=== PATIENT | female | born 1965 | race American Indian/Alaskan Native ===

== ENCOUNTER 2016-11-17 03:03 | Emergency (ER) | payer OTHER ==
[2016-11-17] MEDS ORDERED: TYLENOL PO ONE ×2 (03:27→05:51)
--- NOTE | 2016-11-17 03:56 | XRay Report ---
FINAL REPORT PROCEDURE: XR HAND 3+V RT TECHNIQUE: RIGHT hand radiographs, AP, lateral, and oblique views. CPT 84218-AR HISTORY: Rt 4th digit pain swelling, Send for report COMPARISON: No prior studies are available for comparison. FINDINGS: Fracture (s) and/or Dislocation(s): There is a comminuted impacted fracture of the proximal phalanx 4th digit right hand. The remaining osseous structures are intact.. Alignment: Normal . Joint space(s): Normal . Soft tissues: Normal . Bone mineralization: Normal . Foreign bodies: None . IMPRESSION: Comminuted impacted fracture of the proximal phalanx 4th digit right hand..
--- NOTE | 2016-11-17 07:45 | Emergency Department Report ---
ED General Adult HPI - General Chief complaint: Extremity Injury, Upper Stated complaint: RT FINGER INJURY Time Seen by Provider: 11/17/16 07:26 Source: patient Mode of arrival: Ambulatory Limitations: No Limitations - History of Present Illness Initial comments: 51-year-old female presents to the ED with right hand pain, specifically right ring finger. States that she was carrying something and it slipped causing her finger to get pulled. Patient states that the finger was dislocated at the PIP joint, but she was able to reduce it on her own. Patient states for range of motion but tenderness to palpation to proximal finger. Denies other injury. -: Gradual, days(s) (1) Severity scale (0 -10): 6 - Related Data Previous Rx's Medication Instructions Recorded Last Taken Type Metoclopramide [Reglan] 10 mg PO Q6H #10 tablet 12/17/12 Unknown Rx Lisinopril/Hydrochlorothiazide 1 each PO QDAY #30 tablet 12/17/13 Unknown Rx [Zestoretic 20-25 mg] traMADol [Ultram 50 MG tab] 50 mg PO Q6H PRN #20 tablet 12/17/13 Unknown Rx Butalb/Acetamin/Caff 50-325-40 1 tab PO Q6HR PRN #30 tab 01/06/15 Unknown Rx [Fioricet] Ibuprofen [Motrin 600 MG tab] 600 mg PO Q8H PRN #30 tablet 01/06/15 Unknown Rx Lisinopril/Hydrochlorothiazide 1 tab PO QDAY #30 tab 01/06/15 Unknown Rx [Zestoretic 20-25 mg] Ibuprofen [Motrin] 800 mg PO Q8HR PRN #30 tablet 11/17/16 Unknown Rx traMADol [Ultram 50 MG tab] 50 mg PO Q4HR PRN #20 tablet 11/17/16 Unknown Rx Allergies Allergy/AdvReac Type Severity Reaction Status Date / Time Penicillins Allergy Rash Verified 12/17/12 15:38 ED Review of Systems ROS: Stated complaint: RT FINGER INJURY Other details as noted in HPI Constitutional: denies: chills, fever Eyes: denies: eye pain, eye discharge, vision change ENT: denies: ear pain, throat pain Respiratory: denies: cough, shortness of breath, wheezing Cardiovascular: denies: chest pain, palpitations Endocrine: no symptoms reported Gastrointestinal: denies: abdominal pain, nausea, diarrhea Genitourinary: denies: urgency, dysuria, discharge Musculoskeletal: joint swelling, arthralgia. denies: back pain Skin: denies: rash, lesions Neurological: denies: headache, weakness, paresthesias Psychiatric: denies: anxiety, depression Hematological/Lymphatic: denies: easy bleeding, easy bruising ED Past Medical Hx - Past Medical History Previous Medical History?: Yes Hx Hypertension: Yes - Surgical History Past Surgical History?: Yes Additional Surgical History: Right ankle surgery. Left salpingectomy due to ectopic - Social History Smoking Status: Never Smoker Substance Use Type: None - Medications Home Medications: Home Medications Medication Instructions Recorded Confirmed Last Taken Type Metoclopramide [Reglan] 10 mg PO Q6H #10 tablet 12/17/12 Unknown Rx Lisinopril/Hydrochlorothiazide 1 each PO QDAY #30 tablet 12/17/13 Unknown Rx [Zestoretic 20-25 mg] traMADol [Ultram 50 MG tab] 50 mg PO Q6H PRN #20 tablet 12/17/13 Unknown Rx Butalb/Acetamin/Caff 50-325-40 1 tab PO Q6HR PRN #30 tab 01/06/15 Unknown Rx [Fioricet] Ibuprofen [Motrin 600 MG tab] 600 mg PO Q8H PRN #30 tablet 01/06/15 Unknown Rx Lisinopril/Hydrochlorothiazide 1 tab PO QDAY #30 tab 01/06/15 Unknown Rx [Zestoretic 20-25 mg] Ibuprofen [Motrin] 800 mg PO Q8HR PRN #30 tablet 11/17/16 Unknown Rx traMADol [Ultram 50 MG tab] 50 mg PO Q4HR PRN #20 tablet 11/17/16 Unknown Rx ED Physical Exam - General Limitations: No Limitations General appearance: alert, in no apparent distress - Head Head exam: Present: atraumatic, normocephalic - Eye Eye exam: Present: normal appearance - ENT ENT exam: Present: mucous membranes moist - Neck Neck exam: Present: normal inspection - Respiratory Respiratory exam: Present: normal lung sounds bilaterally. Absent: respiratory distress - Cardiovascular Cardiovascular Exam: Present: regular rate, normal rhythm. Absent: systolic murmur, diastolic murmur, rubs, gallop - GI/Abdominal GI/Abdominal exam: Present: soft, normal bowel sounds - Extremities Exam Extremities exam: Present: normal inspection - Expanded Upper Extremity Exam Right Forearm Wrist exam: Present: normal inspection, full ROM Hand Wrist exam: Present: full ROM, tenderness, swelling. Absent: erythema, amputation, nail avulsion (1), subungual hematoma - Back Exam Back exam: Present: normal inspection - Neurological Exam Neurological exam: Present: alert, oriented X3 - Psychiatric Psychiatric exam: Present: normal affect, normal mood - Skin Skin exam: Present: warm, dry, intact, normal color. Absent: rash ED Course Vital Signs 11/17/16 03:05 Temperature 98.2 F Pulse Rate 62 Respiratory 16 Rate Blood Pressure 140/84 [Right] O2 Sat by Pulse 99 Oximetry ED Medical Decision Making - Radiology Data Radiology results: image reviewed interpreted by me: comminuted fracture right ring finger. closed Critical care attestation.: If time is entered above; I have spent that time in minutes in the direct care of this critically ill patient, excluding procedure time. ED Disposition Clinical Impression: Fracture of phalanx of right ring finger with routine healing Disposition: TO HOME OR SELFCARE Is pt being admited?: No Does the pt Need Aspirin: No Condition: Good Instructions: Finger Fracture (ED) Prescriptions: Ibuprofen [Motrin] 800 mg PO Q8HR PRN #30 tablet PRN Reason: Pain traMADol [Ultram 50 MG tab] 50 mg PO Q4HR PRN #20 tablet PRN Reason: Pain Referrals: PRIMARY MD CHUCK [Primary Care Provider] - 3-5 Days LAURA BALLESTEROS MD [Staff Physician] - 3-5 Days Forms: Work/School Release Form(ED) Time of Disposition: 07:44
[2016-11-17 08:00] VITALS: BP 163/98
== END 2016-11-17 07:59 | disposition home or self-care (01) ==
LOC: ED 03:03
DX: S62.604A Fracture of unspecified phalanx of right ring finger, initial encounter for closed fracture (principal); I10 Essential (primary) hypertension; X58.XXXA Exposure to other specified factors, initial encounter; Y93.9 Activity, unspecified; Y92.9 Unspecified place or not applicable; Y99.9 Unspecified external cause status